=== PATIENT | female | born 1960 | race Native Hawaiian/Other Pacific Islander ===

== ENCOUNTER 2016-10-03 03:02 | Emergency (ER) | payer OTHER ==
[~2016-10-03] VITALS: Ht 157.5 cm; Wt 90.7 kg
[~2016-10-03 03:02] MED LIST: DICLOFENAC75 MG PO; HYDR25TA60 PO; PRILOSEC OTC20 MG PO; TAZTIA X3 PO; TRAM50TA PO
[2016-10-03 04:31] LABS: PLATELET COUNT 182 K/uL (152-353)
[2016-10-03 04:43] LABS: POTASSIUM 3.7 mmol/L (3.6-5.2); SODIUM 137 mmol/L (136-145)
[2016-10-03 06:40] VITALS: BP 126/75; TEMP 97.8
== END 2016-10-03 06:49 | disposition home or self-care (01) ==
LOC: ED 03:02
PROVIDERS: Emergency Medicine
DX: G43.909 Migraine, unspecified, not intractable, without status migrainosus (principal)
CPT/HCPCS: 80053; 85027; 96374; 96375; 99284; J0696; J1100; J1170; J2550

== ENCOUNTER 2020-04-28 12:57 | Emergency (ER) | payer OTHER ==
[~2020-04-28] VITALS: Ht 154.9 cm; Wt 99.3 kg
[~2020-04-28 12:57] MED LIST changes: +ALTOPREV20 MG PO; +CIPRO500 MG PO; +HYDROCHLOROT50 MG PO; +LEVO-T25 MCG PO; +POTASSIUM CHLO10 MEQ PO
[2020-04-28 13:13] VITALS: TEMP 99.1
[2020-04-28 14:46] LABS: PLATELET COUNT 218 K/uL (152-353)
[2020-04-28 14:52] LABS: POTASSIUM 3.2 mmol/L (3.6-5.2); SODIUM 139 mmol/L (136-145)
[2020-04-28 14:59] LABS: PARTIAL THROMBOPLASTIN TIME 24.5 SECONDS (24.5-33.6)
[2020-04-28 18:45] VITALS: BP 145/90
== END 2020-04-28 18:57 | disposition home or self-care (01) ==
LOC: ED 12:57
PROVIDERS: Family Medicine
DX: R11.2 Nausea with vomiting, unspecified (principal); R42 Dizziness and giddiness; J06.9 Acute upper respiratory infection, unspecified; E87.6 Hypokalemia; Z20.828 Contact with and (suspected) exposure to other viral communicable diseases
CPT/HCPCS: 36415; 80053; 81000; 82728; 84484; 85027; 85379; 85610; 85730; 87635; 93005; 96365; 96375; 99284; J0456; J2405; U0003

== ENCOUNTER 2021-04-12 02:18 | Emergency (ER) | payer OTHER ==
[~2021-04-12] VITALS: Ht 154.9 cm; Wt 99.3 kg
[2021-04-12 03:33] VITALS: BP 148/71; TEMP 97.9
== END 2021-04-12 03:33 | disposition home or self-care (01) ==
LOC: ED 02:18
DX: J40 Bronchitis, not specified as acute or chronic (principal); M79.18 Myalgia, other site
CPT/HCPCS: 96372; 99283; J1885

== ENCOUNTER 2021-05-09 10:38 | Outpatient (CLI) | payer OTHER ==
[2021-05-09 11:26] LABS: PLATELET COUNT 195 K/uL (152-353)
[2021-05-09 11:56] LABS: POTASSIUM 3.7 mmol/L (3.6-5.2); SODIUM 140 mmol/L (136-145)
== END 2021-05-09 23:00 | disposition home or self-care (01) ==
LOC: MAMMO 10:38
PROVIDERS: ATTEND Family Medicine
DX: I10 Essential (primary) hypertension (principal); E03.9 Hypothyroidism, unspecified; E78.2 Mixed hyperlipidemia; E55.9 Vitamin D deficiency, unspecified; Z12.31 Encounter for screening mammogram for malignant neoplasm of breast
CPT/HCPCS: 36415; 80053; 80061; 81000; 82043; 82306; 83735; 84443; 84479; 85027

== ENCOUNTER → 2021-05-23 | Outpatient (CLI) | payer OTHER | LOC: US 13:54 | PROVIDERS: ATTEND Family Medicine | DX: R92.8 Other abnormal and inconclusive findings on diagnostic imaging of breast (principal) ==